=== PATIENT | female | born 2000 | race Caucasian/White ===

== ENCOUNTER 2023-05-23 12:14 | Emergency (ER) | payer MEDICAID ==
[~2023-05-23] VITALS: Ht 152.4 cm; Wt 61.0 kg
[2023-05-23 12:58] VITALS: BP 159/97; PULSE 115; RESP 19; TEMP 98; O2SAT 99
== END 2023-05-23 15:36 | disposition left against medical advice (07) ==
LOC: ER 12:14
DX: F15.129 Other stimulant abuse with intoxication, unspecified (principal); I10 Essential (primary) hypertension; Z98.890 Other specified postprocedural states
CPT/HCPCS: 81025; 99282

== ENCOUNTER 2024-09-15 18:54 | Emergency (ER) | payer MEDICAID ==
[~2024-09-15] VITALS: Ht 152.4 cm; Wt 68.0 kg
[~2024-09-15 18:54] MED LIST: LEVO-65 MT
[2024-09-15 19:01] VITALS: O2SAT 100
[2024-09-15 19:12] VITALS: BP 144/72; PULSE 94; RESP 20; TEMP 36.8; O2SAT 98
== END 2024-09-15 20:28 | disposition left against medical advice (07) ==
LOC: ER 18:54
DX: O46.91 Antepartum hemorrhage, unspecified, first trimester (principal); Z3A.01 Less than 8 weeks gestation of pregnancy; Z98.890 Other specified postprocedural states; Z53.21 Procedure and treatment not carried out due to patient leaving prior to being seen by health care provider
CPT/HCPCS: 76801